=== PATIENT | female | born 1940 | race Caucasian/White ===

== ENCOUNTER 2022-03-13 17:36 | Emergency (ER) | payer MEDICARE, OTHER ==
[~2022-03-13] VITALS: Ht 172.7 cm; Wt 70.8 kg
[2022-03-13] MEDS ORDERED: MICO71PO11 TP (18:06)
[2022-03-13] MEDS ORDERED: CITA10TA9 PO (18:06)
[2022-03-13] MEDS ORDERED: ACET-2154 PO (18:06)
[2022-03-13] MEDS ORDERED: QUET25TA PO (18:06)
[2022-03-13] MEDS ORDERED: GABA-532 PO (18:06)
[2022-03-13] MEDS ORDERED: MELA3TAB41 PO (18:06)
[2022-03-13] MEDS ORDERED: ASPI-618 PO (18:06)
[2022-03-13] MEDS ORDERED: CYAN-51 PO (18:06)
[2022-03-13 18:22] LABS: HEMATOCRIT 34.1 % (31.2-41.9); MEAN CORPUSCULAR VOLUME 63.6 fL (75.5-95.3); PLATELET COUNT (AUTO) 231 K/uL (179-408)
[2022-03-13 18:28] LABS: CARBON DIOXIDE 28 mmol/L (21-32); CHLORIDE 105 mmol/L (98-107); CREATININE 0.8 mg/dL (0.6-1.3); GLUCOSE 100 mg/dL (74-106); UREA NITROGEN, BLOOD 21 mg/dL (7-18)
[2022-03-13 18:36] LABS: ALANINE AMINOTRANSFERASE 10 U/L (14-59); ALKALINE PHOSPHATASE 97 U/L (50-136); ASPARTATE AMINOTRANSFERASE 12 U/L (15-37); BILIRUBIN,DIRECT 0.1 mg/dL (0.0-0.2); BILIRUBIN,TOTAL 0.4 mg/dL (0.2-1.0); TOTAL PROTEIN, SERUM 7.7 g/dL (6.4-8.2)
[2022-03-13] MEDS ORDERED: LORAZEPAM 0.5 MG TABLET ONE (19:35)
[2022-03-13] MEDS ORDERED: LORAZEPAM 0.5 MG TABLET PO ONE (19:45)
--- NOTE | 2022-03-13 20:07 | NUR ---
Daughter at bedside
--- NOTE | 2022-03-13 20:45 | NUR ---
Patient discharged to home in stable condition. verbal after care instructions given to daughter, verbalizes understanding of instructions. Stressed follow up or return to ER for worsening s/s. pt ambulated wtih steady gait. denies pain
[2022-03-13 22:03] VITALS: BP 133/72
== END 2022-03-13 20:50 ==
LOC: ER 17:39
DX: Z04.3 Encounter for examination and observation following other accident (principal); R07.81 Pleurodynia; R00.1 Bradycardia, unspecified; G30.9 Alzheimer's disease, unspecified; F02.80 Dementia in other diseases classified elsewhere, unspecified severity, without behavioral disturbance, psychotic disturbance, mood disturbance, and anxiety; Z86.73 Personal history of transient ischemic attack (TIA), and cerebral infarction without residual deficits; K21.9 Gastro-esophageal reflux disease without esophagitis; I25.10 Atherosclerotic heart disease of native coronary artery without angina pectoris; Z95.5 Presence of coronary angioplasty implant and graft; Z88.1 Allergy status to other antibiotic agents; Z88.0 Allergy status to penicillin; Z91.013 Allergy to seafood; Z79.899 Other long term (current) drug therapy; R94.8 Abnormal results of function studies of other organs and systems
CPT/HCPCS: 36415; 71045; 73590; 73610; 73700; 84484; 85025; 93005; A4663